=== PATIENT | female | born 1955 | race Caucasian/White ===

== ENCOUNTER 2021-01-19 15:35 | Emergency (ER) | payer MEDICARE ==
[2021-01-19] MEDS ORDERED: DEXAMETHASONE SOD PHOSPHATE 10 MG/ML 1 ML VIAL IVP STA (19:28)
[2021-01-19] MEDS ORDERED: SODIUM CHLORIDE 0.9% 50 ML IVPB ONE (20:00)
--- NOTE | 2021-01-19 20:28 | ED ---
Recheck HPI - General Chief Complaint: Recheck/Abnormal Lab/Rx Stated Complaint: covid+/wants antibodies Time Seen by Provider: 01/19/21 18:59 Source: patient, RN notes reviewed Mode of arrival: ambulatory Limitations: no limitations - History of Present Illness Initial Comments: Is a 65-year-old female that presents to the emergency department complaining of Covid like symptoms. She did test positive on 09/11/2020. She is requesting monoclonal antibody infusion. Patient is otherwise well-appearing. She denied any fevers. She denied any other issues or complaints. She denied chest pain short of breath headache nausea vomiting diarrhea constipation fever fatigue chills. - Related Data Allergies Allergy/AdvReac Type Severity Reaction Status Date / Time No Known Allergies Allergy Verified 01/19/21 17:04 Review of Systems ROS Statement: Those systems with pertinent positive or pertinent negative responses have been documented in the HPI. ROS Other: All systems not noted in ROS Statement are negative. Past Medical History Past Medical History: No Reported History History of Any Multi-Drug Resistant Organisms: None Reported Past Surgical History: No Surgical Hx Reported Past Psychological History: No Psychological Hx Reported Smoking Status: Current every day smoker, Never smoker Past Alcohol Use History: Occasional Past Drug Use History: Marijuana General Exam Limitations: no limitations General appearance: alert, in no apparent distress, obese Head exam: Present: atraumatic, normocephalic, normal inspection Eye exam: Present: normal appearance, PERRL, EOMI. Absent: scleral icterus, conjunctival injection, periorbital swelling ENT exam: Present: normal exam, mucous membranes moist Neck exam: Present: normal inspection Respiratory exam: Present: normal lung sounds bilaterally. Absent: respiratory distress, wheezes, rales, rhonchi, stridor Cardiovascular Exam: Present: regular rate, normal rhythm, normal heart sounds. Absent: systolic murmur, diastolic murmur, rubs, gallop, clicks Extremities exam: Present: normal inspection, full ROM, normal capillary refill. Absent: tenderness, pedal edema, joint swelling, calf tenderness Neurological exam: Present: alert, oriented X3 Psychiatric exam: Present: normal affect, normal mood Skin exam: Present: warm, dry, intact, normal color. Absent: rash Course Vital Signs 01/19/21 17:04 Temperature 99 F Pulse Rate 75 Respiratory 18 Rate Blood Pressure 146/89 O2 Sat by Pulse 98 Oximetry Medical Decision Making - Medical Decision Making Patient is a 65-year-old female that Covid-positive with symptoms for the past week. Patient requesting monoclonal antibodies she does meet criteria. Patient will undergo monoclonal antibody infusion in his agree with discharge home after. Case discussed with Dr. Brock. Disposition Clinical Impression: COVID Disposition: HOME SELF-CARE Condition: Stable Instructions (If sedation given, give patient instructions): Coronavirus Disease 2019 (COVID-19) Additional Instructions: Please return to the Emergency Department if symptoms worsen or any other concerns. Is patient prescribed a controlled substance at d/c from ED?: No Referrals: None,Stated [Primary Care Provider] - 1-2 days Time of Disposition: 20:28
[2021-01-19] MEDS ORDERED: BAMLANIVIMAB (EUA) 700 MG, ETESEVIMAB (EUA) 1,400 MG in SODIUM CHLORIDE 0.9% 50 ML IVPB ONE (20:30)
[2021-01-19 22:35] VITALS: BP 124/75; PULSE 78; RESP 16; TEMP 98.2
== END 2021-01-19 22:35 | disposition home or self-care (01) ==
LOC: EC 15:35
DX: Z20.822 Contact with and (suspected) exposure to COVID-19 (principal); F17.200 Nicotine dependence, unspecified, uncomplicated
CPT/HCPCS: 99282; 96374; J1100; J3490

== ENCOUNTER → 2021-09-12 | Outpatient (CLI) | payer MEDICARE ==
--- NOTE | 2021-09-13 11:32 | MM ---
Reason for Exam: Screening (asymptomatic). Last mammogram was performed 5 year(s) and 9 month(s) ago. Patient History: Menarche at age 13. First Full-Term at age 25. Postmenopausal. Patient has history of breast feeding. Mother had breast cancer at or over age 50. Risk Values: Sapphire 5 year model risk: 3.0%. NCI Lifetime model risk: 10.2%. Prior Study Comparison: 03/02/2009 Bilateral MG screening mammo w CAD - 2, Unknown. 12/08/2015 Bilateral MG screening mammo w CAD - 2, [facility]. Tissue Density: The breast tissue is heterogeneously dense. This may lower the sensitivity of mammography. Findings: Analyzed By CAD. There is no suspicious group of microcalcifications or new suspicious mass in either breast. Benign calcifications noted. Overall Assessment: Benign, BI-RAD 2 Management: Screening Mammogram of both breasts in 1 year. A clinical breast exam by your physician is recommended on an annual basis and results should be correlated with mammographic findings. Electronically signed and approved by: Ruddy Tanner M.D. Radiologis
== END | disposition home or self-care (01) ==
LOC: RADMAMWWP 09:54
PROVIDERS: ATTEND Family Medicine
DX: Z12.31 Encounter for screening mammogram for malignant neoplasm of breast (principal); Z08 Encounter for follow-up examination after completed treatment for malignant neoplasm; Z80.3 Family history of malignant neoplasm of breast
CPT/HCPCS: 77063; 77067

== ENCOUNTER → 2022-10-06 | Outpatient (CLI) | payer MEDICARE, BC ==
--- NOTE | 2022-10-09 10:09 | MM ---
Reason for Exam: Screening (asymptomatic). Last mammogram was performed 1 year(s) and 1 month(s) ago. Patient History: Menarche at age 13. First Full-Term at age 25. Postmenopausal. Patient has history of breast feeding. Mother had breast cancer, age 60. Risk Values: Sapphire 5 year model risk: 3.1%. NCI Lifetime model risk: 9.8%. Prior Study Comparison: 03/02/2009 Bilateral MG screening mammo w CAD - 2, Unknown. 12/08/2015 Bilateral MG screening mammo w CAD - 2, [facility], [place]. 09/12/2021 Bilateral MG 3D screening mammo w/cad, [facility]. Tissue Density: The breast tissue is almost entirely fat. Findings: Analyzed By CAD. There is no suspicious group of microcalcifications or new suspicious mass in either breast. Overall Assessment: Negative, BI-RAD 1 Management: Screening Mammogram of both breasts in [address] [facility] will attempt to contact patient to return for supplemental views and ultrasound if indicated. Patient should continue monthly self-breast exams. A clinical breast exam by your physician is recommended on an annual basis. This exam should not preclude additional follow-up of suspicious palpable abnormalities. Note on Sapphire scores and lifetime risk: 1. A Sapphire score greater than 3% is considered moderate risk. If this is the case, consider specialist referral to assess eligibility for a risk reducing agent. 2. If overall lifetime risk for the development of breast cancer is 20% or higher, the patient may qualify for future screening with alternating mammogram and breast MRI. Electronically signed and approved by: Roberto Duarte DO
== END | disposition home or self-care (01) ==
LOC: RADMAMWWP 11:29
PROVIDERS: ATTEND Family Medicine
DX: Z12.31 Encounter for screening mammogram for malignant neoplasm of breast (principal); Z78.0 Asymptomatic menopausal state; Z80.3 Family history of malignant neoplasm of breast
CPT/HCPCS: 77063; 77067

== ENCOUNTER → 2024-02-07 | Outpatient (CLI) | payer MEDICARE, BC ==
--- NOTE | 2024-02-11 10:50 | MM ---
Reason for Exam: Screening (asymptomatic). Last mammogram was performed 1 year(s) and 4 month(s) ago. Patient History: Menarche at age 13. First Full-Term at age 25. Postmenopausal. Patient has history of breast feeding. Mother had breast cancer, age 60. Risk Values: Sapphire 5 year model risk: 3.1%. NCI Lifetime model risk: 9.3%. Prior Study Comparison: 12/08/2015 Bilateral MG screening mammo w CAD - 2, [facility]. 09/12/2021 Bilateral MG 3D screening mammo w/cad, [facility]. 10/06/2022 Bilateral MG 3D screening mammo w/cad, [facility]. Tissue Density: There are scattered areas of fibroglandular density. Findings: Analyzed By CAD. Right breast: There is no suspicious group of microcalcifications or new suspicious mass. Left breast: There is no suspicious group of microcalcifications or new suspicious mass. Overall Assessment: Negative, BI-RAD 1 Management: Screening Mammogram of both breasts in [address] [facility] will attempt to contact patient to return for supplemental views and ultrasound if indicated. Patient should continue monthly self-breast exams. A clinical breast exam by your physician is recommended on an annual basis. This exam should not preclude additional follow-up of suspicious palpable abnormalities. Note on Sapphire scores and lifetime risk: 1. A Sapphire score greater than 3% is considered moderate risk. If this is the case, consider specialist referral to assess eligibility for a risk reducing agent. 2. If overall lifetime risk for the development of breast cancer is 20% or higher, the patient may qualify for future screening with alternating mammogram and breast MRI. [facility], , 02/11/2024 10:47 AM. Electronically signed and approved by: Roberto Duarte DO
== END | disposition home or self-care (01) ==
LOC: RADMAMWWP 07:40
PROVIDERS: ATTEND Family Medicine
DX: Z12.31 Encounter for screening mammogram for malignant neoplasm of breast (principal); R92.323 Mammographic fibroglandular density, bilateral breasts; Z78.0 Asymptomatic menopausal state; Z80.3 Family history of malignant neoplasm of breast
CPT/HCPCS: 77063; 77067